=== PATIENT | female | born 1970 | race Caucasian/White ===

== ENCOUNTER 2020-09-07 21:02 | Emergency (ER) | payer OTHER, SELFPAY ==
--- NOTE | ~2020-09-07 | XR_ITS ---
EXAMINATION: XR chest 2V EXAM DATE: 09/07/2020 21:28 INDICATION: Worsening heart palpitations. TECHNIQUE: Frontal and lateral projections of the chest obtained and reviewed. There is no prior luz elena dy for comparison. FINDINGS: The lungs are clear. There are no pleural effusions. The cardiomediastinal silhouette is within normal limits. There is no pneumothorax suspected. The bones and soft tissues are unremarkab le. IMPRESSION: Normal chest x-ray exam. Reviewed, dictated and finalized at location A. IMPRESSION: Normal chest x-ray exam.
[2020-09-07 21:05] VITALS: BP 141/90; PULSE 93; RESP 20; TEMP 36.6; O2SAT 100
--- NOTE | 2020-09-07 21:12 | ECG_ITS ---
Measurements Intervals [place] Rate: 97 P: 86 IA: 129 QRS: 68 QRSD: 89 T: 40 QT: 365 QTc: 465 Interpretive Statements SINUS RHYTHM FREQUENT VENTRICULAR PREMATURE COMPLEXES ABNORMAL ECG Electronically Signed On 09-08-2020 6:55:17 CDT by Nader Payne D.O.
[2020-09-07 21:25] LABS: Basophils Percent Auto 0.3 % (0.2-1.2); Eosinophils Percent Auto 0.5 % (0-4.4); Hematocrit 35.7 % (37.0-47.0); Immature Granulocyte Absolute 0.02 K/mm3 (0.00-0.031); Immature Granulocyte Percent A 0.2 % (0-0.5); Lymphocytes Absolute Auto 1.67 K/mm3 (0.9-3.2); Mean Corpuscular HGB Conc 33.6 g/dl (32-36); Mean Corpuscular Hemoglobin 29.4 pg (26-34); Mean Corpuscular Volume 87.5 fl (80-100); Mean Platelet Volume 9.1 fl (7.4-10.4); Monocytes Absolute Auto 0.5 K/mm3 (0.1-0.6); Monocytes Percent Auto 5.5 % (2.6-8.5); Neutrophils Absolute Auto 6.6 K/mm3 (1.3-6.7); Neutrophils Percent Auto 74.5 % (45.5-73.1); Platelet Count Result 286 k/mm3 (150-375); Red Blood Count 4.08 M/mm3 (4.2-5.4); Red Cell Distribution Width 13.7 % (11.5-14.5); White Blood Count 8.8 K/mm3 (4.5-10.0)
[2020-09-07 21:36] LABS: Anion Gap 10 mmol/L (8-16); Blood Urea Nitrogen 9 mg/dL (7-17); Calcium 9.8 mg/dL (8.4-10.2); Carbon Dioxide 24 mmol/L (22-30); Chloride 107 mmol/L (98-107); Estimated CRCL calculation 92 ml/min; Estimated Glomerular Filt Rate > 60; Glucose 142 mg/dL (65-105); Potassium 3.6 mmol/L (3.4-5.0); Prothrombin Time 12.6 Seconds (11.1-14.7); Sodium 141 mmol/L (137-145)
[2020-09-07 21:37] LABS: Partial Thromboplastin Time 33.2 SECONDS (22.3-36.8)
[2020-09-07 21:48] LABS: Troponin I < 0.012 ng/mL (0.000-0.034)
--- NOTE | 2020-09-07 22:52 | ED.GENADULT ---
HPI - General Adult General Chief complaint: Arrhythmia/Palpitations Stated complaint: heart palpitations Time Seen by Provider: 09/07/20 22:42 Source: patient History of Present Illness HPI narrative: Patient is a 50 y/o female complaining of moderate to severe palpitation since 3-4 days ago. There is no alleviating or exacerbating factor. She saw her doctor today, was prescribed Buspar and Zoloft, but those medications did not help. She also has some intermittent left sided chest pain. She started to have some abdominal pain and diarrhea today. She also had an episode of feeling light-headed and eased herself to the floor. She denies passing out. Review of Systems Constitutional: Constitutional: Denies chills, Denies fever(s), Denies headache(s) and Denies weakness Eyes: Eyes: Denies blurry vision ENT: Denies headache(s) and Denies neck pain Cardiovascular: Cardiovascular: Denies chest pain, Reports irregular heart rhythm and Denies dyspnea Respiratory: Respiratory: Denies cough and Denies dyspnea Gastrointestinal: Gastrointestinal: Reports abdominal pain, Reports diarrhea, Denies nausea and Denies vomiting Genitourinary: Genitourinary: Denies hematuria and Denies dysuria Musculoskeletal: Musculoskeletal: Denies back pain and Denies neck pain Neurologic: Reports dizziness, Denies headache(s) and Denies weakness Exam Const: General: no acute distress and well developed Orientation/consciousness: oriented to person, oriented to place, oriented to time and patient oriented x3 HENMT: Head: normocephalic Ears: external ears normal General nose exam: Normal external nose present Eyes: General: appearance normal, both eyes and all related structures Conjunctivae: conjunctivae normal Neck: Neck: normal visual inspection and full ROM Chest: Chest palpation & inspection: normal inspection of the chest and no tenderness Resp: Effort & Inspection: normal respiratory effort Auscultation: clear to auscultation bilaterally Cardio: Rate: regular rate Rhythm: regular rhythm GI: GI Palp: No abdominal tenderness and Yes Soft to palpation Skin: General skin exam: normal color and turgor normal Neuro: General: oriented to person, oriented to place, oriented to time and patient oriented x3 Cognition (Neuro): normal cognition Extrem: General: normal to inspection, full ROM and no pedal edema Psych: Appearance: grossly normal Mental Status: mental status grossly normal Affect: normal affect Course Vital Signs Vital signs: Vital Signs Temperature 36.6 C 09/07/20 21:05 Pulse Rate 93 09/07/20 21:05 Respiratory Rate 20 09/07/20 21:05 Blood Pressure 141/90 H 09/07/20 21:05 Pulse Oximetry 100 09/07/20 21:05 Temperature 36.6 C 09/07/20 21:05 Pulse Rate 89 09/08/20 01:14 Respiratory Rate 20 09/08/20 01:14 Blood Pressure 129/78 09/08/20 01:14 Pulse Oximetry 98 09/08/20 01:14 Medical Decision Making Vital Signs Vital Signs: Vital Signs Temperature 36.6 C 09/07/20 21:05 Pulse Rate 93 09/07/20 21:05 Respiratory Rate 20 09/07/20 21:05 Blood Pressure 141/90 H 09/07/20 21:05 Pulse Oximetry 100 09/07/20 21:05 Temperature 36.6 C 09/07/20 21:05 Pulse Rate 89 09/08/20 01:14 Respiratory Rate 09/08/20 01:14 Blood Pressure 129/78 09/08/20 01:14 Pulse Oximetry 98 09/08/20 01:14 Lab Data Result diagrams: 09/07/20 21:18 09/07/20 21:18 Labs: Lab Results 09/07/20 09/07/20 09/07/20 Range/Units 21:18 21:18 21:18 WBC 8.8 (4.5-10.0) K/mm3 RBC 4.08 L (4.2-5.4) M/mm3 Hgb 12.0 (12.0-15.0) g/dL Hct 35.7 L (37.0-47.0) % MCV 87.5 (80-100) fl MCH 29.4 (26-34) pg MCHC 33.6 (32-36) g/dl RDW 13.7 (11.5-14.5) % Plt Count 286 (150-375) k/mm3 MPV 9.1 (7.4-10.4) fl Immature Gran % (Auto) 0.2 (0-0.5) % Neut % (Auto) 74.5 H (45.5-73.1) % Lymph % (Auto) 19.0 (18.3-44.2) % Mon
[2020-09-07] MEDS: ASPIRIN 81 MG CHEWABLE TABLET 324 MG PO (23:03)
[2020-09-07 23:05] VITALS: BP 128/75; PULSE 92; RESP 18; O2SAT 100
[2020-09-08 00:38] LABS: Troponin I < 0.012 ng/mL (0.000-0.034)
[2020-09-08] MEDS: LORazepam (*CRX) 1 MG TABLET PO (01:04)
[2020-09-08 01:14] VITALS: BP 129/78; PULSE 89; RESP 20; O2SAT 98
== END 2020-09-08 01:25 | disposition home or self-care (01) ==
PROVIDERS: Emergency Medicine; Emergency Provider Emergency Medicine; PCP Nurse Practitioner Family
DX: R00.2 Palpitations (principal); I49.3 Ventricular premature depolarization; F41.9 Anxiety disorder, unspecified; R07.9 Chest pain, unspecified
CPT/HCPCS: 36415; 71046; 80048; 84443; 84484; 85025; 85610; 85730; 93005; 99284; A9270

== ENCOUNTER 2021-01-10 15:09 | Emergency (ER) | payer OTHER, SELFPAY ==
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
[2021-01-10 15:17] VITALS: BP 145/82; PULSE 106; RESP 16; TEMP 36.9; O2SAT 99
[2021-01-10 15:24] VITALS: BP 145/82; PULSE 106; RESP 16; TEMP 36.9; O2SAT 99
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
== END 2021-01-10 15:58 | disposition home or self-care (01) ==
PROVIDERS: Emergency Provider Emergency Medicine; PCP Nurse Practitioner Family
DX: S80.12XA Contusion of left lower leg, initial encounter (principal); V43.62XA Car passenger injured in collision with other type car in traffic accident, initial encounter
CPT/HCPCS: 73590; 99213; G0463

== ENCOUNTER 2021-05-10 13:58 | Outpatient (CLI) | payer OTHER, SELFPAY ==
--- NOTE | 2021-05-13 16:39 | WPDHOLTEREM ---
Holter/Event Monitor Holter/Event Monitor Date of procedure: 05/10/21 Procedure Type: 24 hour holter monitor Indications: Palpitations Conclusion: 1. 24 hour holter monitor on 05/10/21. 2. Underlying rhythm is sinus rhythm. HR range 59-132 bpm; average HR 88 bpm. 3. No premature supraventricular complexes. No supraventricular tachycardia. 4. There are 2,405 premature ventricular complexes. No ventricular tachycardia. 5. No sinoatrial or atrioventricular blocks. No significant pauses greater than 2 seconds. 6. Patient reports episodes of palpitations throughout the monitoring.
== END 2021-05-10 13:59 | disposition home or self-care (01) ==
LOC: ANHCARD 14:01
PROVIDERS: PCP Nurse Practitioner Family; Visit Provider Nurse Practitioner Family
DX: R00.2 Palpitations (principal)
CPT/HCPCS: 93225; 93226